=== PATIENT | female | born 1965 | race Caucasian/White ===

== ENCOUNTER → 2021-09-22 | Day surgery (SDC) | payer MEDICARE, OTHER ==
[~2021-09-22] MED LIST: FLONASE ALLER15.8 ML; HYDROCODON-ACE1 EAC4 PO; IBU600 MG PO; NUVIGIL150 MG PO; PREVACID30 MG PO; ROPINIROLE HC0.25 MG PO; ZYRTEC10 MG PO
== END | disposition home or self-care (01) ==
LOC: OR 06:38
DX: R10.11 Right upper quadrant pain (principal); K58.2 Mixed irritable bowel syndrome; K21.9 Gastro-esophageal reflux disease without esophagitis; E03.9 Hypothyroidism, unspecified; F11.90 Opioid use, unspecified, uncomplicated; E66.9 Obesity, unspecified; Z68.30 Body mass index [BMI] 30.0-30.9, adult; Z79.899 Other long term (current) drug therapy
CPT/HCPCS: J2250; J3010; J7040